=== PATIENT | female | born 1970 | race Caucasian/White ===

== ENCOUNTER → 2020-07-29 | Outpatient (CLI) | payer BC ==
--- NOTE | 2020-07-29 16:25 | RADIOLOGY REPORT (SQ) ---
EXAM DESCRIPTION: KUB; PELVIS AP IMAGES COMPLETED DATE/TIME: 07/29/2020 4:11 pm; 07/29/2020 4:14 pm REASON FOR STUDY: DISPLACEMENT OF INTRAUTERINE CONTRACEPTIVE DEVICE, INIT T83.32XA DISPLACEMENT OF INTRAUTERINE CONTRACEPTIVE DEVICE, COMPARISON: None. NUMBER OF VIEWS: AP pelvis KUB TECHNIQUE: Supine radiographic image of the abdomen acquired. Supine AP pelvis film was obtained. LIMITATIONS: Uppermost abdomen cropped from the field of view FINDINGS: BOWEL GAS PATTERN: Normal bowel gas pattern. No dilated loops. CALCIFICATIONS: No suspicious calcifications. SOFT TISSUES: No gross mass or suggestion of organomegaly. HARDWARE: None in the abdomen. No IUD is seen over the abdomen or pelvis BONES: No acute fracture. No worrisome bone lesions. OTHER: No other significant finding. IMPRESSION: No IUD is seen over the abdomen or pelvis. TECHNICAL DOCUMENTATION: JOB ID: [id number] 2010 [employer]- All Rights Reserved Reading location - IP/workstation name: [email or web address]
--- NOTE | 2020-07-29 16:25 | RADIOLOGY REPORT (SQ) ---
EXAM DESCRIPTION: KUB; PELVIS AP IMAGES COMPLETED DATE/TIME: 07/29/2020 4:11 pm; 07/29/2020 4:14 pm REASON FOR STUDY: DISPLACEMENT OF INTRAUTERINE CONTRACEPTIVE DEVICE, INIT T83.32XA DISPLACEMENT OF INTRAUTERINE CONTRACEPTIVE DEVICE, COMPARISON: None. NUMBER OF VIEWS: AP pelvis KUB TECHNIQUE: Supine radiographic image of the abdomen acquired. Supine AP pelvis film was obtained. LIMITATIONS: Uppermost abdomen cropped from the field of view FINDINGS: BOWEL GAS PATTERN: Normal bowel gas pattern. No dilated loops. CALCIFICATIONS: No suspicious calcifications. SOFT TISSUES: No gross mass or suggestion of organomegaly. HARDWARE: None in the abdomen. No IUD is seen over the abdomen or pelvis BONES: No acute fracture. No worrisome bone lesions. OTHER: No other significant finding. IMPRESSION: No IUD is seen over the abdomen or pelvis. TECHNICAL DOCUMENTATION: JOB ID: [id number] 2010 [employer]- All Rights Reserved Reading location - IP/workstation name: [email or web address]
== END ==
LOC: OD 15:23
PROVIDERS: ATTEND Obstetrics & Gynecology
DX: T83.32XA Displacement of intrauterine contraceptive device, initial encounter (principal)
CPT/HCPCS: 72170; 74018